=== PATIENT | male | born 1990 | race Asian ===

== ENCOUNTER 2016-09-05 19:54 | Emergency (ER) | payer OTHER ==
[2016-09-05 20:10] VITALS: TEMP 98.1; O2SAT 97
--- NOTE | 2016-09-05 20:14 | EDPHY ---
H & P Stated Complaint: BLACK STOOL TODAY, HAD UPPER GI LAST WEEK= WNL, DIZZY YEST Time Seen by Provider: 09/05/16 20:13 - Personal History Current Tetanus/Diphtheria Vaccine: Unsure - Medical/Surgical History Hx Asthma: No Hx Chronic Respiratory Disease: No Hx Diabetes: No Hx Cardiac Disease: No Hx Renal Disease: No Hx Cirrhosis: No Hx Alcoholism: No Hx HIV/AIDS: No Hx Splenectomy or Spleen Trauma: No Other PMH: GI BLEED - Social History Smoking Status: Never smoked Constitutional: Initial Vital Signs Temperature (C) 36.7 C 09/05/16 20:06 Heart Rate 71 09/05/16 20:06 Respiratory Rate 18 09/05/16 20:06 Blood Pressure 154/64 H 09/05/16 20:06 O2 Sat (%) 97 09/05/16 20:06 O2 Delivery Mode Room Air Allergies/Adverse Reactions: No Known Allergies Allergy (Unverified 09/05/16 20:05) Home Medications: Medication Instructions Recorded Amoxicillin 09/05/16 Biaxin 09/05/16 Protonix 09/05/16 Medical Decision Making ED Course/Re-evaluation: CHIEF COMPLAINT: Upper GI bleed HISTORY OF PRESENT ILLNESS: The patient is a 26 y/o male arriving with his family member complaining of loose black stools onset this morning. He states, "I think my stomach is bleeding because my stools are black." He's experienced the same symptoms recently and had an endoscopy on 08/28/16, 8 days ago, that was normal. He was also started on Protonix, Biaxin, and amoxicillin. The black stools resolved until today. He reports he is compliant with his medications. He denies syncope, lightheadedness, abdominal pain, or other complaints. REVIEW OF SYSTEMS: A 10 point review of systems was performed and is negative with the exception of the elements mentioned in the history of present illness. PHYSICAL EXAM: HR, BP, O2 Sat, RR. Temp noted General Appearance: Alert, well hydrated, appropriate, and non-toxic appearing. Head: Atraumatic without scalp tenderness or obvious injury Eyes: Pupils equal, round, reactive to light and accommodation, EOMI, no trauma , no injection. Ears: Clear bilaterally, no perforation, normal landmarks Nose: Atraumatic, no rhinorrhea, clear. Throat: There is no erythema or exudates, no lesions, normal tonsils, mucus membranes moist. Neck: Supple, 2+ carotid upstroke, nontender, no lymphadenopathy. Respiratory: No retractions, no distress, no wheezes, and no accessory muscle use. Lungs are clear to auscultation bilaterally. Cardiovascular: Regular rate and rhythm, no murmurs, rubs, or gallops. Bilateral carotid, radial, dorsalis pedis, and posterior tibial pulses intact. Good capillary refill all extremities. Gastrointestinal: Abdomen is soft, nontender, non-distended, no masses, no rebound, no guarding, no peritoneal signs. Musculoskeletal: Normal active ROM of all extremities, atraumatic. Neurological: Alert, appropriate, and interactive. The patient has normal DTRs and non-focal cranial nerves, motor, sensory, and cerebellar exam. Skin: No rashes, good turgor, no nodules on palpation. Past medical history: Upper GI bleed of undetermined source, Helicobacter positive Past surgical history: Endoscopy 08/28/16 performed in [place] Family history: Noncontributory Social history: Family member at bedside DIFFERENTIAL DIAGNOSIS: The differential diagnosis for the patient's upper GI bleeding included but was not limited to ulcer disease, gastritis, Sara- Pittman tear, and esophageal varices. MEDICAL DECISION MAKING: This is a normally healthy 26 y/o male presenting with black stools for the second time this month. He had an endoscopy on 08/28/16 that was normal and was started on medications including treatment for Helicobacter. He denies associated symptoms. He is well-appearing on exam. Plan for ISTAT to check Hct and then GI consult 2051: Hct is 39. Consulted with Dr. Willis GI. He is comfortable with my plan to discharge patient home and follow up with his office as an outpatient on Thursday. Discussed this plan with the patient and he agrees. Strict return precautions given. Departure - Departure Disposition: Home, Routine, Self-Care Clinical Impression: Black stools Condition: Good Instructions: Gastrointestinal Bleeding (ED) Additional Instructions: 1. Continue taking your medications as prescribed. 2. Follow up with Dr. Willis, GI doctor, on Thursday. 3. Return to the ED for fainting, lightheadedness, abdominal pain, or other worsening of condition. Referrals: NONE *PRIMARY CARE P,. [Primary Care Provider] - As per Instructions Kevyn Willis MD [Medical Doctor] - As per Instructions Report Scribed for: Edy Villalta Report Scribed by: Christina العلي Date of Report: 09/05/16 Time of Report: 20:14
[2016-09-05 21:06] VITALS: BP 121/78; PULSE 68; RESP 16
== END 2016-09-05 21:06 | disposition home or self-care (01) ==
DX: R19.5 Other fecal abnormalities (principal)
CPT/HCPCS: 82947-QW

== ENCOUNTER 2016-09-08 16:51 | Inpatient (IN) | payer OTHER ==
[2016-09-08] MEDS ORDERED: NS 1,000 ML IV ONE ×3 (17:05→21:18)
[2016-09-08] MEDS ORDERED: PANTOPRAZOLE SODIUM 40 MG VIAL IVP ONE (17:10)
--- NOTE | 2016-09-08 17:10 | EDPHY ---
H & P Stated Complaint: RETURNS FOR CONTINUED BLACK STOOLS SEEN HERE THURSDAY Source: Patient Exam Limitations: No limitations - Personal History Current Tetanus Diphtheria and Acellular Pertussis (TDAP): Unsure - Medical/Surgical History Hx Asthma: No Hx Chronic Respiratory Disease: No Hx Diabetes: No Hx Cardiac Disease: No Hx Renal Disease: No Hx Cirrhosis: No Hx Alcoholism: No Hx HIV/AIDS: No Hx Splenectomy or Spleen Trauma: No Other PMH: GI BLEED - Social History Smoking Status: Never smoked HPI/ROS: CHIEF COMPLAINT: Abdominal pain, dark tarry stools HISTORY OF PRESENT ILLNESS: patient has nearly 1 week of epigastric abdominal pain with doctor stools. He had this previously at his place of residence, where he had a reportedly normal EGD scan within the past few weeks. He was seen here recently with laboratory studies and discharged home with instructions to follow up with the GI specialist. He has made appointment on Thursday with Dr. Willis. since time of discharge from this facility, he did have 1-2 days of improvement but his dark stools returned early this morning. He has also been lightheaded and dizzy. No syncope. No chest pain. No bright red blood in the stool. No vomiting but he is nauseated. No fevers or chills. No use of anticoagulants. No other associated complaints or modifying factors. REVIEW OF SYSTEMS: Ten systems reviewed and are negative unless otherwise noted in the HPI EXAMINATION: General Appearance: Alert, no distress Head: normocephalic, atraumatic Eyes: Pupils equal and round, no conjunctival pallor or injection ENT, Mouth: Mucous membranes moist. No erythema, edema, petechiae Neck: Normal inspection, supple, non-tender Respiratory: Lungs are clear to auscultation. No wheezing, rhonchi or crackles. Cardiovascular: Regular rate and rhythm . No murmur. Pulses intact distally. Gastrointestinal: Abdomen is soft . Mild tenderness in the epigastrium. No tympany. No rigidity. Nonacute abdomen. Rectal: normal rectal tone. No stool in the rectal vault. Prostate was normal in caliber and palpation. Neurological: A&O, nonfocal, normal gait Skin: Warm and dry, no rash . No petechiae or purpura. Extremities: Nontender, no pedal edema Psychiatric: Mood and affect normal DIFFERENTIAL DIAGNOSES: Including but not limited to Upper GI bleed, duodenitis, gastritis, peptic ulcer, enteritis, colitis, diverticulitis MDM: 5:15 p.m. ongoing abdominal pain with dark tarry stools. He has been lightheaded and dizzy without syncope. No chest pain. Nausea but no vomiting. Has an appointment with his GI specialist on Thursday for an upper GI study. 6:15 p.m. notified by laboratory personnel that the Hemoccult that I performed is positive. 7:15 p.m. notified by radiologist that the CT scan reveals an incidental note of a left renal stone without hydronephrosis or hydroureter. There is no acute finding otherwise. Specifically no abnormality of the duodenum, no no evidence of perforation or pneumoperitoneum. I discussed this with the patient and also with the on-call organ fixer Dr. Moreno. María was made aware the patient has an area over the past 2 weeks. He recommends the patient be admitted and will plan for a EGD in the morning. I then discussed the case with the hospitalist Dr. Dickey, and she will admit the patient to the hospital for further care. The patient is to be NPO after midnight. We have ordered and started Protonix drip ED Precautions: Worsening pain. Fever. Bloody stools. Bloody emesis. Constipation or diarrhea. SUPERVISION: Patient was evaluated in conjunction with the supervising physician. Please see their note for details. (Vini Berry) Constitutional: Initial Vital Signs Temperature (C) 36.8 C 09/08/16 16:56 Heart Rate 81 09/08/16 16:56 Respiratory Rate 16 09/08/16 16:56 Blood Pressure 124/77 H 09/08/16 16:56 O2 Sat (%) 97 09/08/16 16:56 O2 Delivery Mode Room Air Allergies/Adverse Reactions: No Known Allergies Allergy (Verified 09/08/16 19:51) Home Medications: Medication Instructions Recorded Amoxicillin 500 mg PO BID 09/05/16 Clarithromycin [Biaxin (*)] 500 mg PO BID 09/05/16 Pantoprazole Sodium [Protonix 40mg 40 mg PO BID 09/05/16 (*)] Departure - Departure Disposition: [facility] Acute Clinical Impression: Upper GI bleed, Melena Abdominal pain Qualifiers: Abdominal location: epigastric Qualified Code(s): R10.13 - Epigastric pain Condition: Good
[2016-09-08 17:43] LABS: % IMMATURE GRANULYOCYTES 0.2 % (0.0-1.1); ABSOLUTE IMMATURE GRANULOCYTES 0.02 10^3/uL (0.00-0.10); ADD DIFF? NO; ADD MORPH? NO; ADD SCAN? NO; ATYPICAL LYMPHOCYTE FLAG 20 (0-99); FRAGMENT RBC FLAG 0 (0-99); HEMATOCRIT 33.2 % (40.0-51.0); HEMOGLOBIN 11.3 g/dL (13.7-17.5); LEFT SHIFT FLG 0 (0-99); LIPEMIA HEMOLYSIS FLAG 90 (0-99); MEAN CELL HEMOGLOBIN 30.1 pg (27.9-34.1); MEAN CELL VOLUME 88.5 fL (81.5-99.8); MEAN PLATELET VOLUME 9.8 fL (8.7-11.7); PLATELET CLUMPS FLAG 30 (0-99); PLATELET COUNT 286 10^3/uL (150-400); RED BLOOD CELL COUNT 3.75 10^6/uL (4.40-6.38); RED CELL DISTRIBUTION WIDTH 12.8 % (11.5-15.2)
[2016-09-08 18:06] LABS: INR 1.15 (0.83-1.16); PROTIME(PATIENT) 14.7 SEC (12.0-15.0)
[2016-09-08 18:07] LABS: ALANINE AMINOTRANSFERASE 37 IU/L (21-72); ALKALINE PHOSPHATASE 64 IU/L (38-126); ANION GAP 10 mEq/L (8-16); ASPARTATE AMINOTRANSFERASE 21 IU/L (17-59); BILIRUBIN,TOTAL 0.8 mg/dL (0.1-1.4); BILIRUBIN-CONJUGATED 0.1 mg/dL (0.0-0.5); BILIRUBIN-UNCONJUGATED 0.7 mg/dL (0.0-1.1); CALCIUM 8.7 mg/dL (8.5-10.4); CARBON DIOXIDE 26 mEq/l (22-31); CHLORIDE 104 mEq/L (97-110); CREATININE 0.9 mg/dL (0.7-1.3); GLOMERULAR FILTRATION RATE > 60; GLUCOSE 89 mg/dL (70-100); POTASSIUM 4.3 mEq/L (3.5-5.2); SODIUM 140 mEq/L (134-144); TOTAL PROTEIN 6.6 g/dL (6.3-8.2)
[2016-09-08] MEDS ORDERED: IOPAMIDOL (ISOVUE-300) 100 ML BTL IV ONE (18:09)
[2016-09-08 18:18] LABS: APTT 30.2 SEC (23.0-38.0)
[2016-09-08] MEDS ORDERED: MAALOX/LIDO/HYOSC GI COCKTAIL 55 ML BOTTLE PO ONE (18:20)
--- NOTE | 2016-09-08 18:57 | CT ---
CT Abdomen and Pelvis With Contrast History: Epigastric abdominal pain, dark stools. Comparison: None available. Technique: Axial contrast-enhanced images were obtained through the abdomen and pelvis following the uneventful administration of 90 mL Isovue-300 intravenous contrast. Creatinine is 0.9. Dose reduction techniques were utilized. Findings: Abdomen: The lung bases are clear. Heart size is normal. The liver, gallbladder, spleen, pancreas, adrenals, and right kidney are normal. There is a nonobstru cting 3 mm stone in the inferior left kidney. The colon and small bowel are normal caliber without evidence of obstruction. The appendix is normal. There is no free fluid or air. The aorta is normal caliber . The IVC, hepatic, portal, splenic, and superior mesenteric veins are pa tent. An accessory right hepatic vein is noted. No pathologically enlarged lymph nodes are identified . Mild degenerative change is present at L4-L5 and L5-S1 with annular bulges, causing [id number] spinal canal narrowing. Pelvis: The bladder is normal. There is no free fluid. No aggressive osseous lesions are identified. Impression: 1. No acute findings. 2. Nonobstructing left nephrolithiasis. 3. Mild degenerative change in the lumbar spine with mild to moderate spinal canal narrowing from L4 through S1. Findings discussed with Vini Berry PAC 09/08/2016 at 18:51.
[2016-09-08 19:01] LABS: COLOR PALE YELLOW; LEUKOCYTE ESTERASE,URINE NEGATIVE (NEGATIVE); NITRITE,URINE NEGATIVE (NEGATIVE)
[2016-09-08] MEDS ORDERED: PANTOPRAZOLE SODIUM 80 MG in NS 100 ML IV SCH (19:30)
[2016-09-08] MEDS ORDERED: PANTOPRAZOLE SODIUM 80 MG in NS 100 ML IV ONE (20:00)
[2016-09-08] MEDS ORDERED: ACETAMINOPHEN 325 MG TAB PO PRN (21:06)
[2016-09-08] MEDS ORDERED: ONDANSETRON 4 MG/2 ML VIAL IVP PRN (21:06)
[2016-09-08] MEDS ORDERED: ONDANSETRON DISINTEGRATING 4 MG TAB PO PRN (21:06)
[2016-09-08] MEDS ORDERED: PANTOPRAZOLE SODIUM 40 MG in NS 100 ML IV SCH (21:30)
[2016-09-08] MEDS ORDERED: NS 1,000 ML IV SCH (21:30)
[2016-09-08] MEDS ORDERED: ONDANSETRON DISINTEGRATING 4 MG TAB PO ONE (21:31)
[2016-09-08] MEDS: CLARITHROMYCIN 500 MG TAB PO SCH (21:33)
--- NOTE | 2016-09-08 21:56 | GHP ---
[f rep st] HISTORY AND PHYSICAL DATE OF ADMISSION: 09/08/2016 CHIEF COMPLAINT: Acute blood loss anemia, melena. HISTORY OF PRESENT ILLNESS: The patient is a pleasant 26-year-old male with no significant past medical history, presenting with melena. The patient was visiting his girlfriend in [place] early in August and began having dark stools. At that time, he was evaluated and underwent an EGD that showed a normal esophagus and chronic gastritis. He was H. pylori positive. He has been taking triple therapy since that time. After discharge the patient's stools were normal for approximately 5-6 days but then he began having the dark black stools for the past 2 weeks. They have been watery and loose for the past 2 days. He said there is a little bit of bright red blood but mainly dark. He denies any abdominal pain but describes it more as a discomfort. Denies nausea or vomiting. No fevers, chills, or sweats. No joint pain. No myalgias. He has had increased fatigue. He states that he is normally very active. He has dizziness if he gets up too quickly or is walking up the stairs. He has not lost consciousness. He states that he has had an episode of lower GI bleeding 5 years ago and has had no problems since then. He has had a normal appetite over the last couple of weeks but has been eating softer foods. REVIEW OF SYSTEMS: I completed a 10-point review of systems, negative except as noted in HPI. PAST MEDICAL HISTORY: Lower GI bleed 5 years ago. PAST SURGICAL HISTORY: None. SOCIAL HISTORY: He is a Ph student at in physics. He just moved here from [place] 4 months ago. Denies illicit's, tobacco, or alcohol. MEDICATIONS: 1. Protonix 40 mg daily. 2. Clarithromycin 500 mg daily. 3. Amoxicillin 500 mg daily. 4. Denies any NSAIDs. FAMILY HISTORY: No familial history of stomach cancers. ALLERGIES: No known drug allergies. PHYSICAL EXAMINATION: VITAL SIGNS: Temperature 37.2, blood pressure 117/37, heart rate 70s, respiration 14, 98% on room air. GENERAL: Sitting up in bed, no acute distress. Mildly pale. HEENT: PERRLA. EOMI. Normal conjunctiva. No conjunctival pallor. CV: Regular rate and rhythm. No murmurs, gallops, or rubs. LUNGS: Clear to auscultation bilaterally. ABDOMEN: Soft, nontender, nondistended. Positive bowel sounds throughout. : No suprapubic tenderness. MUSCULOSKELETAL: 5/5 upper and lower extremity strength. NEURO: 2 through 12 intact. PSYCH: Alert and oriented x3. LABORATORY DATA: WBC 8.3, hemoglobin 11, hematocrit 33, platelets 286. Coags are within normal. Sodium 140, potassium 4.3, chloride 104, carbon dioxide 26, BUN 29, creatinine 0.9, glucose 89. LFTs are within normal. Lipase was negative. Urine is negative. Fecal occult blood positive. Abdominal CT: No acute findings. There is nonobstructing left nephrolithiasis. Mild degenerative change in lumbar spine with mild to moderate spinal canal narrowing at L4 through S1. ASSESSMENT AND PLAN: 1. Symptomatic acute blood loss anemia/melena: This is likely secondary to an ulcer secondary to Helicobacter pylori. Patient tested positive in early August. He has been taking triple therapy. I will continue these. I will continue amoxicillin and clarithromycin and place on a PPI drip here. GI has been consulted and will see patient in the morning. I will check serial H and H. He is currently hemodynamically stable. 2. Chronic gastritis: per EGD on August 28 at an outside hospital in [place]. Continue PPI. 3. Dizziness: due to acute blood loss anemia. We will hydrate. Blood pressure has been stable here. 4. Diet: N.p.o. 5. DVT prophylaxis. Low risk and no anticoagulation in the setting of gastrointestinal bleed. Patient warrants observation admission, given acute GI bleed requiring serial H and H, IV Protonix, and Gastroenterology consultation. /[id number]/MODL MTDD
[2016-09-09 06:57] LABS: HEMATOCRIT 28.4 % (40.0-51.0); HEMOGLOBIN 9.4 g/dL (13.7-17.5)
[2016-09-09 06:58] LABS: ANION GAP 6 mEq/L (8-16); CALCIUM 8.4 mg/dL (8.5-10.4); CARBON DIOXIDE 25 mEq/l (22-31); CHLORIDE 106 mEq/L (97-110); GLOMERULAR FILTRATION RATE > 60; GLUCOSE 75 mg/dL (70-100); POTASSIUM 4.5 mEq/L (3.5-5.2); SODIUM 137 mEq/L (134-144)
[2016-09-09 09:07] LABS: HEMATOCRIT 27.9 % (40.0-51.0); HEMOGLOBIN 9.4 g/dL (13.7-17.5); MEAN CELL HEMOGLOBIN 30.6 pg (27.9-34.1); MEAN CELL HEMOGLOBIN CONCENTR. 33.7 g/dL (32.4-36.7); MEAN CELL VOLUME 90.9 fL (81.5-99.8); RED BLOOD CELL COUNT 3.07 10^6/uL (4.40-6.38); RED CELL DISTRIBUTION WIDTH 13.1 % (11.5-15.2)
--- NOTE | 2016-09-09 09:45 | HOSPPROG ---
Hospitalist Progress Note Assessment/Plan: # melena - recent EGD in [place] (d/t melena) - ?chronic gastritis; started on H. pylori tx - has hx of arterial GI bleed 5 years ago; at 14yo had GI bleed with no identified source on EGD - plan EGD today - discussed with Dr Moreno - jax H/H - cont ppi gtt # ABLA - no transfusion now, but may need; also consider IV Fe ## new pt to me CT reviewed Subjective: no abd pain; no melena overnight Objective: Vital Signs Temp Pulse Resp BP Pulse Ox 36.7 C 64 16 107/65 98 09/09/16 08:43 09/09/16 08:43 09/09/16 08:43 09/09/16 08:43 09/09/16 08:43 Laboratory Results 09/09/16 04:30 09/09/16 06:00 09/08/16 09/09/16 09/10/16 05:59 05:59 05:59 Intake Total 3100 Balance 3100 PT 14.7 SEC (12.0-15.0) 09/08/16 17:28 INR 1.15 (0.83-1.16) 09/08/16 17:28 - Physical Exam Constitutional: no apparent distress, appears nourished Cardiovascular: regular rate and rhythym, no murmur, rub, or gallop Respiratory: no respiratory distress, no rales or rhonchi, clear to auscultation Gastrointestinal: normoactive bowel sounds, soft, non-tender abdomen, no palpable masses ICD10 Worksheet Patient Problems: Problems Problem Status Onset Upper GI bleed Acute Melena Acute Abdominal pain Acute
[2016-09-09] MEDS: CLARITHROMYCIN 500 MG TAB PO SCH ×2 (10:18→19:40)
[2016-09-09] MEDS ORDERED: PANTOPRAZOLE SODIUM 40 MG in NS 100 ML IV ONE (10:50)
[2016-09-09] MEDS ORDERED: PANTOPRAZOLE SODIUM 80 MG in NS 100 ML IV SCH (11:00)
--- NOTE | 2016-09-09 11:04 | GCON ---
[f rep st] CONSULTATION DATE OF CONSULTATION: 09/09/2016 REFERRING PHYSICIAN: Shannon Dickey MD REASON FOR CONSULTATION: Dr. Dickey, thank you very kindly for asking me to evaluate this patient i n consultation for chief complaint of melena. 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 He was diz zy, lightheaded and was having melena. Endoscopy was performed there, and while I do not have the f ormal results, it sounds like he was found to have gastritis and H pylori. He was treated with amox icillin, clarithromycin and omeprazole. He has returned home to [facility] where he is attending [employer], and has had persistent problems of weakness and dark tarry bowel movements. He denies any NSA ID or alcohol use. Interestingly, the patient has had a remote history of an upper GI bleed in [facility] 5 years ago when he developed hematemesis and had what he describes as a clipping procedure done f or a bleeding artery. I do not have more details of this. Since that initial event 5 years ago and the bleeding in [place] when he was traveling to visit his girlfriend, he was well in between thes e events. His initial hematocrit in the ER was 33.2 and has fallen to 28.4 this morning. He has no t had any melena since admission. His INR is normal at 1.15 and his other hemodynamic parameters vinson ve been stable. His platelets are 232. I am asked to assist with further evaluation and management of his melena and anemia. PAST MEDICAL HISTORY: 1. Significant for what sounds like a gastric ulcer with arterial bleeding requiring Endoclip thera py in [place]. 2. H pylori related gastritis, recently diagnosed in August in [place]. 3. No other past medical or surgical problems. ALLERGIES: None. MEDICATIONS: Clarithromycin, amoxicillin and omeprazole twice daily. SOCIAL HISTORY: No alcohol, no tobacco. 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 He attends University in [facility]. He has a significant other w alix is in school in [place]. FAMILY HISTORY: Negative for peptic ulcer disease or bleeding disorders. REVIEW OF SYSTEMS: CONSTITUTIONAL: He has been weak and dizzy. He has felt lightheaded. HEENT: No headache, no visual disturbances. No sore throat. No epistaxis. No difficulty swallowing. PUL MONARY: He has been short of breath with exertion. CARDIOVASCULAR: No chest pains, palpitations o r syncope. GI: He describes multiple frequent dark bowel movements in a day. There is no abdomina l pain, interestingly. No vomiting, no hematemesis, no nausea, no dysphagia, and no heartburn. MUS CULOSKELETAL: No joint pain or swelling. DERMATOLOGIC: No rash, pruritus or jaundice. HEMATOLOGI C: No epistaxis or bruising. Endocrine: No heat or cold intolerance. No polyuria, polydipsia. G ENITOURINARY: No dysuria, hematuria. PSYCHIATRIC: No depression, anxiety, or insomnia. NEUROLOGI C: No paresthesias, focal motor weakness, or seizure. PHYSICAL EXAM: VITAL SIGNS: Blood pressure is 107/65, with a pulse of 64, oxygenation 98% on room air, temperature is 36.7. GENERAL: Healthy-appearing male, in no acute distress. HEENT: No rmocephalic, atraumatic. Oropharynx clear. No epistaxis. Sclerae anicteric. NECK: Supple. No t hyromegaly. PULMONARY: Clear to auscultation bilaterally. CARDIOVASCULAR: Regular rate and rhyth m without murmur, rub, or gallop. GI: Abdomen is scaphoid, nondistended. No organomegaly. No ten derness, rebound, guarding or ascites. MUSCULOSKELETAL: Normal gait and station. No cyanosis, clu bbing. Normal joints without deformity or swelling. NEUROLOGIC: Alert to person, place, and time. Cranial nerves 2-12 are normal. Motor is nonfocal. Gait is nonataxic. DERMATOLOGIC: No jaundic e or rash. LYMPHATIC: No lymphadenopathy. DATABASE: White blood count of 6.6, hematocrit 27.9, platelets 232. INR is 1.15. Sodium 137, pota ssium 4.5, chloride 106, bicarbonate 25, BUN 20, creatinine 1.0, anion gap 6. BUN yesterday on admi ssion was 29. Total bilirubin 0.8, AST is 21, ALT is 37, alkaline phosphatase 64, lipase is 62. IMPRESSION: 1. Anemia secondary to acute on chronic blood loss. 2. Recent gastritis with H pylori positivity on treatment. 3. Melena. 4. Weakness and fatigue. RECOMMENDATIONS: 1. N.p.o. 2. Serial hematocrit q.8 hours. 3. Continuous Protonix IV infusion. 4. Continue antibiotic therapy for H pylori. 5. Repeat upper endoscopy to interrogate for a source of bleeding that might have been missed at [facility] endoscopy August 28 in [place]. 6. Request records from the [place] endoscopy for review. 7. Depending on the findings of the endoscopy, will potentially need further endoscopic evaluation. This may include a colonoscopy, although I think given the description of his history and recent b leeding this would be unlikely for a colonic source of bleeding. Nonetheless, if his endoscopy is r eally unremarkable, then colonoscopy should be performed. 8. Consideration for small bowel bleeding sources such as arterial venous malformations or Meckel's diverticula can also be considered. If the upper endoscopy is negative, and colonoscopy is perform ed and also negative, then either a capsule endoscopy or nuclear medicine scan could be arranged to further evaluate this. 9. If his hematocrit falls much further, he may benefit from a transfusion. My threshold would be a hematocrit of 25 as he does have a symptomatic anemia and still an undisclosed source of bleeding. 10. Further recommendations to follow. /[id number]/MODL
[2016-09-09 11:56] LABS: HEMATOCRIT 30.1 % (40.0-51.0); HEMOGLOBIN 10.2 g/dL (13.7-17.5)
[2016-09-09] MEDS ORDERED: MIDAZOLAM 2 MG/2 ML VIAL ONE (12:52)
[2016-09-09] MEDS ORDERED: PROPOFOL 200 MG/20 ML VIAL ONE ×3 (12:52→13:04)
--- NOTE | 2016-09-09 13:49 | GPN ---
[f rep st] PROCEDURE NOTE NAME OF PROCEDURE: Esophagogastroduodenoscopy. INDICATION: Melena and anemia secondary to blood loss. CONSENT: Procedure consent was obtained from the patient after the risks and benefits of endoscopy were discussed in detail. All questions were answered and informed consent was obtained. ENDOSCOPY STAFF: Caleb. ANESTHESIA: Provided by Dr. Kelly. Monitored anesthesia care with IV propofol. PROCEDURE DESCRIPTION: The patient was placed into the left lateral decubitus position with the hea d of the bed at 30 degrees. All monitoring parameters were ensued per anesthesiology protocol. IV propofol was administered by IV until it was appropriate. We sedated and then the endoscope utilize d to intubate the esophagus under direct visualization. FINDINGS: The posterior hypopharynx was normal. There was no blood. The esophagus was intubated u nder direct visualization easily and advanced into the GE junction at 38 cm which was normal in appe arance with a regular-appearing Z-line. There was no evidence of esophagitis or esophageal varices. The stomach was entered and revealed a linear, somewhat ulcer along the lesser curve of the gastri c body with surrounding erythema, congestion, and granularity. There was no stigmata of recent blee ding. Retroflexed view of the gastric cardia was normal. The remaining body of the stomach was unr emarkable. There were some small erosive changes on the incisura. The antrum was clean without abn ormality as was the pylorus and pyloric channel. The duodenum was normal through the second portion . Bile was seen throughout the stomach and duodenum without any evidence of active bleeding. IMPRESSION: 1. Normal esophagus. 2. Superficial gastric ulcer along the lesser curve, without stigmata of bleeding, clean based. 3. Erosive gastropathy in the incisura without bleeding. 4. Normal duodenum to the second portion. RECOMMENDATION: 1. Diet as tolerated. 2. I would recommend considering IV iron infusion to help him with the recent bleed and recovery of his anemia. 3. He has been recently tested for H pylori and was reportedly positive and is on treatment for thi s and I would continue his full course of therapy for H pylori. 4. Follow up in GI as an outpatient in a few weeks. 5. If the patient has persistent melena despite the endoscopic findings today, then we will recomme nd a colonoscopy, and if negative, a capsule endoscopy. I do believe the findings today of erosive gastropathy and a superficial gastric ulcer in the setting of H pylori are enough to have been the c ause of bleeding. He has now been on treatment for at least 10 days from his previous endoscopy in [place]. 6. Return to [facility] for possible discharge same day. /[id number]/MODL
--- NOTE | 2016-09-09 15:43 | HOSPPROG ---
Hospitalist Progress Note Assessment/Plan: # melena - recent EGD in [place] (d/t melena) - ?chronic gastritis; started on H. pylori tx - has hx of arterial GI bleed 5 years ago; at 14yo had GI bleed with no identified source on EGD - EGD today - discussed with Dr Moreno - trend H/H - ppi gtt/I dc'd this and started him on oral PPI BID # ABLA - no transfusion now, IV Fe ordered. #plan: reviewed his care with Dr Allen who saw him earlier today. Spoke with Dr Moreno who noted the patient had a gastric ulcer/ cont PPI bid/ and cont h pylori treatment for a total of 14 days. I have ordered iron IV for him. He is concerned about chlamydia (his girlfriend has this)/ will order test. Talked to him about being discharged this evening/ he feels too dizzy and lightheaded. Get repeat labs in a.m./ having ongoing melena stools per RN. Subjective: Trevor says he is feeling too dizzy to be discharged. Objective: Vital Signs Temp Pulse Resp BP Pulse Ox 36.9 C 74 18 107/57 L 98 09/09/16 13:36 09/09/16 13:36 09/09/16 13:36 09/09/16 15:02 09/09/16 15:02 Laboratory Results 09/09/16 11:45 09/09/16 06:00 09/08/16 09/09/16 09/10/16 05:59 05:59 05:59 Intake Total 3600 Balance 3600 PT 14.7 SEC (12.0-15.0) 09/08/16 17:28 INR 1.15 (0.83-1.16) 09/08/16 17:28 - Physical Exam Constitutional: no apparent distress, appears nourished Eyes: PERRL Ears, Nose, Mouth, Throat: hearing normal Respiratory: no respiratory distress Skin: warm, No normal color (pale) Musculoskeletal: no muscle tenderness Neurologic: AAOx3 Psychiatric: interacting appropriately ICD10 Worksheet Patient Problems: Problems Problem Status Onset Abdominal pain Acute Melena Acute Upper GI bleed Acute
[2016-09-09] MEDS ORDERED: SODIUM FERRIC GLUCONAT/SUCROSE 125 MG in NS 100 ML IV ONE (15:46)
[2016-09-09] MEDS: PANTOPRAZOLE SODIUM 40 MG TAB PO SCH (19:40)
[2016-09-10 05:44] LABS: % IMMATURE GRANULYOCYTES 0.3 % (0.0-1.1); ABSOLUTE IMMATURE GRANULOCYTES 0.03 10^3/uL (0.00-0.10); ADD DIFF? NO; ADD MORPH? NO; ADD SCAN? NO; ATYPICAL LYMPHOCYTE FLAG 0 (0-99); FRAGMENT RBC FLAG 0 (0-99); HEMATOCRIT 27.3 % (40.0-51.0); HEMOGLOBIN 9.1 g/dL (13.7-17.5); LEFT SHIFT FLG 0 (0-99); LIPEMIA HEMOLYSIS FLAG 80 (0-99); MEAN CELL HEMOGLOBIN 30.1 pg (27.9-34.1); MEAN CELL HEMOGLOBIN CONCENTR. 33.3 g/dL (32.4-36.7); MEAN CELL VOLUME 90.4 fL (81.5-99.8); MEAN PLATELET VOLUME 10.5 fL (8.7-11.7); PLATELET CLUMPS FLAG 0 (0-99); PLATELET COUNT 241 10^3/uL (150-400); RED BLOOD CELL COUNT 3.02 10^6/uL (4.40-6.38)
[2016-09-10] MEDS: SODIUM FERRIC GLUCONAT/SUCROSE 125 MG in NS 100 ML IV SCH (08:03)
[2016-09-10] MEDS: PANTOPRAZOLE SODIUM 40 MG TAB PO SCH ×2 (08:04→20:08)
[2016-09-10] MEDS: CLARITHROMYCIN 500 MG TAB PO SCH ×2 (08:04→20:07)
[2016-09-10 12:26] LABS: CHLAMYDIA AMPLIFICATION GENPRB NEGATIVE (NEGATIVE)
--- NOTE | 2016-09-10 14:28 | HOSPPROG ---
Hospitalist Progress Note Assessment/Plan: 26-year-old male presents emergency room complaints of bloody stool. This is my 1st encounter with the patient, chart reviewed. Patient discussed with Dr. Moreno. # melena - recent EGD in [place] (d/t melena) - ?chronic gastritis; started on H. pylori tx - has hx of arterial GI bleed 5 years ago; at 14yo had GI bleed with no identified source on EGD - EGD Done 09/09/2016 see notes- discussed with Dr Moreno - H/H decreased today - ppi - continues to complain of dark stools - plan for colonoscopy in a.m. - follow H&H # ABLA - no transfusion now #plan: Spoke with Dr Moreno who noted the patient had a gastric ulcer/ cont PPI bid/ and cont h pylori treatment for a total of 14 days. plan for colonoscopy in the a.m. He is concerned about chlamydia (his girlfriend has this)/ test pending. Subjective: still having dark stools. Still concern for bleeding. Anxious about situation. Objective: Vital Signs Temp Pulse Resp BP Pulse Ox 36.6 C 71 16 112/68 96 09/10/16 08:00 09/10/16 08:00 09/10/16 08:00 09/10/16 08:00 09/10/16 08:00 Laboratory Results 09/10/16 04:24 09/09/16 06:00 09/09/16 09/10/16 09/11/16 05:59 05:59 05:59 Intake Total 3600 Balance 3600 PT 14.7 SEC (12.0-15.0) 09/08/16 17:28 INR 1.15 (0.83-1.16) 09/08/16 17:28 - Physical Exam Constitutional: no apparent distress, appears nourished, not in pain Eyes: PERRL, anicteric sclera, EOMI Ears, Nose, Mouth, Throat: moist mucous membranes, hearing normal, ears appear normal Cardiovascular: regular rate and rhythym, No JVD, No edema Respiratory: no respiratory distress, no rales or rhonchi, reduced air movement Gastrointestinal: No tenderness, No ascites, No guarding Skin: warm, normal color, No erythema Musculoskeletal: normal joint ROM, no joint effusions, generalized weakness Neurologic: AAOx3 Psychiatric: not anxious, not encephalopathic, thought process linear ICD10 Worksheet Patient Problems: Problems Problem Status Onset Abdominal pain Acute Melena Acute Upper GI bleed Acute
[2016-09-10] MEDS ORDERED: GOLYTELY 4000 ML BTL PO ONE (15:23)
[2016-09-10 15:36] LABS: HEMATOCRIT 29.7 % (40.0-51.0); HEMOGLOBIN 9.9 g/dL (13.7-17.5)
--- NOTE | 2016-09-10 15:38 | SOAPPROG ---
SOAP Progress Note Assessment/Plan: Assessment: 1. Anemia secondary to acute blood loss 2. Melena 3. Erosive gastropathy 4. H.pylori gastritis Plan: 1. I am not convinced that his melena and anemia are well explained by the erosive gastropathy alone. 2. Colonoscopy tomorrow AM 3. Golytely this evening 4. Clears until midnight then NPO 5. Monitor H/H. Transfuse if Hct <25 6. The colon cleanse should also help clear old blood products to help with assessment of ongoing bleeding 7. If colonoscopy negative and ongoing bleeding then a tagged RBC scan (and possibly meckel's scan) can be considered. 8. May pursue provocative angiography if entire w/u non-diagnostic for source. 9. Continue IV PPI for now. 09/10/16 15:39 Subjective: CC: Melena Ongoing. 1-2 formed, black BMs daily. Stable Hct but still anemic. No abdominal pain. No hematochezia. No hematemesis. Objective: Vital Signs Temp Pulse Resp BP Pulse Ox 36.6 C 71 16 112/68 96 09/10/16 08:00 09/10/16 08:00 09/10/16 08:00 09/10/16 08:00 09/10/16 08:00 Laboratory Results 09/09/16 06:00 09/09/16 09/10/16 09/11/16 05:59 05:59 05:59 Intake Total 3600 Balance 3600 PT 14.7 SEC (12.0-15.0) 09/08/16 17:28 INR 1.15 (0.83-1.16) 09/08/16 17:28 Physical Exam - Physical Exam General Appearance: WD/WN, no apparent distress EENT: normal ENT inspection Neck: supple Respiratory: lungs clear Cardiac/Chest: regular rate, rhythm, No tachycardia, No systolic murmur Abdomen: normal bowel sounds, non-tender, soft, No organomegaly, No distended, No guarding, No rebound, No ascites, No bruit Skin: warm/dry, pallor, No cyanosis, No diaphoresis, No jaundice Lymphatic: no adenopathy Neuro/Psych: alert, normal mood/affect, oriented x 3 ICD10 Worksheet Patient Problems: Problems Problem Status Onset Abdominal pain Acute Melena Acute Upper GI bleed Acute
[2016-09-10 21:05] LABS: HEMATOCRIT 32.7 % (40.0-51.0); HEMOGLOBIN 11.2 g/dL (13.7-17.5)
[2016-09-11 04:55] LABS: HEMATOCRIT 30.1 % (40.0-51.0); HEMOGLOBIN 9.9 g/dL (13.7-17.5)
[2016-09-11] MEDS: SODIUM FERRIC GLUCONAT/SUCROSE 125 MG in NS 100 ML IV SCH (08:07)
[2016-09-11] MEDS ORDERED: PROPOFOL/EMULSION 500 MG/50 ML BOTTLE IV ONE (09:15)
[2016-09-11] MEDS ORDERED: LIDOCAINE 2% 100 MG/5 ML SYR IVP ONE (09:15)
[2016-09-11 10:04] VITALS: TEMP 97.9
[2016-09-11] MEDS: CLARITHROMYCIN 500 MG TAB PO SCH ×2 (11:37→21:31)
[2016-09-11] MEDS: PANTOPRAZOLE SODIUM 40 MG TAB PO SCH ×2 (11:38→21:31)
--- NOTE | 2016-09-11 13:33 | HOSPPROG ---
Hospitalist Progress Note Assessment/Plan: 26-year-old male presents emergency room complaints of bloody stool. Patient discussed with Dr. Moreno. # melena - recent EGD in [place] (d/t melena) - ?chronic gastritis; started on H. pylori tx - has hx of arterial GI bleed 5 years ago; at 14yo had GI bleed with no identified source on EGD - EGD Done 09/09/2016 see notes - colonoscopy done today no source of bleeding identified reviewed with Dr. Moreno - H/H follow - ppi IV - continues to complain of a bloody stools - meckel study ordered today # ABLA - no transfusion now #plan: Spoke with Dr Moreno/ cont PPI/ and cont h pylori treatment for a total of 14 days. Subjective: Still concerned about bloody stools. Some intermittent dizziness. No other specific complaints. Objective: Vital Signs Temp Pulse Resp BP Pulse Ox 36.6 C 59 L 14 104/54 L 96 09/11/16 10:49 09/11/16 10:49 09/11/16 10:49 09/11/16 10:49 09/11/16 10:49 Laboratory Results 09/11/16 04:20 09/10/16 09/11/16 09/12/16 05:59 05:59 05:59 Intake Total 500 Output Total 0 Balance 500 PT 14.7 SEC (12.0-15.0) 09/08/16 17:28 INR 1.15 (0.83-1.16) 09/08/16 17:28 - Physical Exam Constitutional: no apparent distress, not in pain Eyes: PERRL, anicteric sclera Ears, Nose, Mouth, Throat: moist mucous membranes, hearing normal Cardiovascular: No JVD, No edema Respiratory: no respiratory distress, reduced air movement Gastrointestinal: No tenderness, No ascites Skin: warm, normal color Musculoskeletal: full muscle strength, no joint effusions Neurologic: AAOx3 Psychiatric: not anxious, not encephalopathic ICD10 Worksheet Patient Problems: Problems Problem Status Onset Upper GI bleed Acute Melena Acute Abdominal pain Acute
--- NOTE | 2016-09-11 15:43 | GPN ---
[f rep st] PROCEDURE NOTE DATE OF PROCEDURE: 09/11/2016 PROCEDURE: A colonoscopy, diagnostic. INDICATION: Melena, obscure GI bleeding. CONSENT: Procedure consent was obtained from the patient after the risks and benefits of colonoscop y and anesthesia were discussed in detail. ANESTHESIOLOGIST: Dr. Henderson. NURSING: Missy Chavarria. PROCEDURE COMPLICATIONS: None. ESTIMATED BLOOD LOSS: None. PROCEDURE MONITORING: Continuous per Anesthesiology protocol. ANESTHESIA: Monitored anesthesia care with IV propofol. DESCRIPTION OF PROCEDURE: The patient was placed into the left lateral decubitus position. Monitor s and oxygen were provided. A time-out was performed. Propofol was administered by IV and when com fortable, the procedure begun. A digital rectal exam was performed and was normal. No palpable mas s or lesion. The perianal tissues are normal. The prostate is unremarkable. The Olympus colonosco pe was advanced ultimately into the terminal ilium. About 10 cm of distal ilium were evaluated. Th e cecum was identified by not only the ileocecal valve and appendiceal orifice, but also by intubati on of the terminal ilium. FINDINGS: The distal and terminal ilium and ileocecal valve are completely normal without blood. T here is no source of bleeding identified. The colon is normal in its entirety, including a retroflexed view in the rectum which is unremarkabl e. The colon did not exhibit any blood within its lumen. IMPRESSION: 1. Normal distal and terminal ilium. 2. Normal ileocecal valve. 3. Normal colon, including retroflexed view. 4. No source for bleeding identified. RECOMMENDATIONS: 1. Return patient to [facility] for ongoing care. 2. Diet as tolerated. 3. Will arrange for a small-bowel follow-through and possibly Meckel's scan for further evaluation of his obscure GI bleeding as both his upper endoscopy now and colonoscopy are unremarkable as to so urce of melena and anemia. /[id number]/MODL
[2016-09-12] MEDS: SODIUM FERRIC GLUCONAT/SUCROSE 125 MG in NS 100 ML IV SCH (08:41)
[2016-09-12] MEDS: CLARITHROMYCIN 500 MG TAB PO SCH (08:41)
[2016-09-12] MEDS: PANTOPRAZOLE SODIUM 40 MG TAB PO SCH (08:42)
[2016-09-12 08:55] VITALS: BP 123/75; PULSE 94; RESP 17; O2SAT 94
[2016-09-12 09:33] LABS: HEMATOCRIT 30.6 % (40.0-51.0); HEMOGLOBIN 10.2 g/dL (13.7-17.5)
--- NOTE | 2016-09-12 19:06 | GDS ---
[f rep st] DISCHARGE SUMMARY DISCHARGE DIAGNOSES: 1. Gastrointestinal bleed. 2. Acute blood-loss anemia. CONSULTATIONS: Gastroenterology. STUDIES AND PROCEDURES DONE: 1. CT of the abdomen. 2. EGD. 3. Colonoscopy. 4. [facility] nuclear medicine study. PHYSICAL EXAM: GENERAL: The patient is alert and oriented. VITAL SIGNS: Afebrile, 36.6, pulse is 94, respiratory rate 17, blood pressure is 123/75, he is saturating 94% on room air. I have seen and evaluated the patient on the day of discharge. HOSPITAL COURSE: The patient is a 26-year-old male, who presented to the emergency room, with compl aints of bloody stool. He was evaluated during this hospitalization, received a consultation from Derrek Moreno. An EGD as well as a colonoscopy were performed during this hospital course with no source of a bleeding identified. The patient's hemoglobin and hematocrit remained stable throughout this hospitalization. A nuclear medicine study was ordered with no identifiable source of bleeding noted either. The patient's bloody stools have stopped. He is tolerating a regular diet. His hemoglobin and swati tocrit are stable. He will be discharged home to follow up with Dr. Moreno in the outpatient setting. He will continue his treatment for his recent diagnosis of H pylori as well as continue a proton pump inhibitor in e outpatient setting. There are no pending studies. DISCHARGE MEDICATIONS: I have provided him prescriptions for Protonix, clarithromycin, amoxicillin. Please refer to EMR form for other specific details. FOLLOWUP: Again, followup will be with Dr. Moreno in the outpatient setting, as well as his primary care physician. I spent greater than 35 minutes in the care, coordination, and management of this patient's disposi tion. /[id number]/MODL
== END 2016-09-12 13:27 | disposition home or self-care (01) | DRG 378 ==
LOC: INTOOBSV 19:33 → F3E 09-09 08:32 → OBSVTOIN 09-09 14:35
PROVIDERS: ADMIT Internal Medicine; ATTEND Internal Medicine
PROC: 0DJ08ZZ Inspection of Upper Intestinal Tract, Via Natural or Artificial Opening Endoscopic (ICD-10-PCS; principal; 2016-09-09 12:45)
PROC: 0DJD8ZZ Inspection of Lower Intestinal Tract, Via Natural or Artificial Opening Endoscopic (ICD-10-PCS; 2016-09-11)
DX: K92.1 Melena (principal); D62 Acute posthemorrhagic anemia; K29.50 Unspecified chronic gastritis without bleeding; K25.9 Gastric ulcer, unspecified as acute or chronic, without hemorrhage or perforation
CPT/HCPCS: 96365; G0378; J2001; J2250; J2704; J2916; Q9967

== ENCOUNTER 2017-02-14 10:03 | Emergency (ER) | payer OTHER ==
[2017-02-14 10:13] VITALS: RESP 16
--- NOTE | 2017-02-14 10:24 | EDPHY ---
HPI/HX/ROS/PE/MDM Narrative: CHIEF COMPLAINT: Dark stool. HPI: The patient is a 26-year-old male admitted here two months ago with history of GI bleed of unknown cause, who complains of two days of dark stools. 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 He states he has taken all appropriate medications prescribed by GI. He denies abdominal pain or lightheadedness. No bloody stool. No hematemesis. REVIEW OF SYSTEMS: Aside from elements discussed in the HPI, a comprehensive 10-point review of systems was reviewed and is negative. PMH: GI bleed, H pylori. SOCIAL HISTORY: [employer] student. PHYSICAL EXAM: General: Patient is alert, in no acute distress. ENT: Eyes are normal to inspection. ENT inspection normal. Neck: Normal inspection. Full range of motion. Respiratory: No respiratory distress. Breath sounds normal bilaterally. Cardiovascular: Regular rate and rhythm. Strong peripheral pulses. Abdomen: The abdomen is nontender to palpation. There are no peritoneal signs. There are normal bowel sounds. Back: Normal to inspection. No tenderness to palpation. Skin: Normal color. No rash. Warm and dry. Extremities: Normal appearance. Full range of motion. Neuro: Oriented x3. Normal motor function. Normal sensory function. ED Course: Lab work is unremarkable. There is no evidence of anemia or hemodynamic instability. On previous admission, no source was found. Patient is appropriate for outpatient workup. Plan to have patient followup with his tour bus driver on Thursday. Patient is agreeable with the plan. - Data Points Laboratory Results: Laboratory Results 02/14/17 10:30 02/14/17 10:30 02/14/17 02/14/17 02/14/17 10:30 10:30 10:30 WBC 5.61 10^3/uL 10^3/uL (3.80-9.50) RBC 5.02 10^6/uL 10^6/uL (4.40-6.38) Hgb 15.0 g/dL g/dL (13.7-17.5) Hct 44.3 % % (40.0-51.0) MCV 88.2 fL fL (81.5-99.8) MCH 29.9 pg pg (27.9-34.1) MCHC 33.9 g/dL g/dL (32.4-36.7) RDW 14.0 % % (11.5-15.2) Plt Count 220 10^3/uL 10^3/uL (150-400) MPV 10.1 fL fL (8.7-11.7) Neut % (Auto) 60.8 % % (39.3-74.2) Lymph % (Auto) 29.6 % % (15.0-45.0) [place] % (Auto) 8.6 % % (4.5-13.0) Eos % (Auto) 0.4 % L % (0.6-7.6) Baso % (Auto) 0.4 % % (0.3-1.7) Nucleat RBC Rel Count 0.0 % % (0.0-0.2) Absolute Neuts (auto) 3.42 10^3/uL 10^3/uL (1.70-6.50) Absolute Lymphs (auto) 1.66 10^3/uL 10^3/uL (1.00-3.00) Absolute Monos (auto) 0.48 10^3/uL 10^3/uL (0.30-0.80) Absolute Eos (auto) 0.02 10^3/uL L 10^3/uL (0.03-0.40) Absolute Basos (auto) 0.02 10^3/uL 10^3/uL (0.02-0.10) Absolute Nucleated RBC 0.00 10^3/uL 10^3/uL (0-0.01) Immature Gran % 0.2 % % (0.0-1.1) Immature Gran # 0.01 10^3/uL 10^3/uL (0.00-0.10) PT 14.2 SEC SEC (12.0-15.0) INR 1.11 (0.83-1.16) APTT 29.6 SEC SEC (23.0-38.0) Sodium 140 mEq/L mEq/L (134-144) Potassium 4.5 mEq/L mEq/L (3.5-5.2) Chloride 105 mEq/L mEq/L (97-110) Carbon Dioxide 24 mEq/l mEq/l (22-31) Anion Gap 11 mEq/L mEq/L (8-16) BUN 14 mg/dL mg/dL (7-23) Creatinine 0.9 mg/dL mg/dL (0.7-1.3) Estimated GFR > 60 Glucose 86 mg/dL mg/dL (70-100) Calcium 9.2 mg/dL mg/dL (8.5-10.4) General Time Seen by Provider: 02/14/17 10:18 Initial Vital Signs: Initial Vital Signs Temperature (C) 36.6 C 02/14/17 10:10 Heart Rate 70 02/14/17 10:10 Respiratory Rate 16 02/14/17 10:10 Blood Pressure 125/86 H 02/14/17 10:10 O2 Sat (%) 95 02/14/17 10:10 O2 Delivery Mode Room Air Allergies/Adverse Reactions: No Known Allergies Allergy (Verified 09/08/16 19:51) Home Medications: Medication Instructions Recorded NK [No Known Home Meds] 02/14/17 Departure - Departure Disposition: Home, Routine, Self-Care Clinical Impression: Melena Condition: Good Instructions: Additional Information Additional Instructions: Please followup with your [facility] on Thursday. Referrals: Xu Moreno MD [Medical Doctor] - As per Instructions Report Scribed for: Xu Green Report Scribed by: Joleen Schilling Date of Report: 02/14/17 Time of Report: 10:24 Physician Review and Approval Statement: Portions of this note were transcribed by a certified ophthalmic medical technician. I personally performed the history, physical exam, and medical decision-making; and confirmed the accuracy of the information in the transcribed note.
[2017-02-14 10:38] LABS: % IMMATURE GRANULYOCYTES 0.2 % (0.0-1.1); ABSOLUTE IMMATURE GRANULOCYTES 0.01 10^3/uL (0.00-0.10); ADD DIFF? NO; ADD MORPH? NO; ADD SCAN? NO; ATYPICAL LYMPHOCYTE FLAG 10 (0-99); FRAGMENT RBC FLAG 0 (0-99); HEMATOCRIT 44.3 % (40.0-51.0); LEFT SHIFT FLG 0 (0-99); LIPEMIA HEMOLYSIS FLAG 90 (0-99); MEAN CELL HEMOGLOBIN 29.9 pg (27.9-34.1); MEAN CELL HEMOGLOBIN CONCENTR. 33.9 g/dL (32.4-36.7); MEAN CELL VOLUME 88.2 fL (81.5-99.8); MEAN PLATELET VOLUME 10.1 fL (8.7-11.7); PLATELET CLUMPS FLAG 20 (0-99); PLATELET COUNT 220 10^3/uL (150-400); RED BLOOD CELL COUNT 5.02 10^6/uL (4.40-6.38)
[2017-02-14 10:49] LABS: INR 1.11 (0.83-1.16); PROTIME(PATIENT) 14.2 SEC (12.0-15.0)
[2017-02-14 10:50] LABS: APTT 29.6 SEC (23.0-38.0)
[2017-02-14 10:57] LABS: ANION GAP 11 mEq/L (8-16); CALCIUM 9.2 mg/dL (8.5-10.4); CARBON DIOXIDE 24 mEq/l (22-31); CHLORIDE 105 mEq/L (97-110); CREATININE 0.9 mg/dL (0.7-1.3); GLOMERULAR FILTRATION RATE > 60; GLUCOSE 86 mg/dL (70-100); POTASSIUM 4.5 mEq/L (3.5-5.2); SODIUM 140 mEq/L (134-144)
[2017-02-14 11:24] VITALS: BP 120/77; PULSE 67; TEMP 97.7; O2SAT 96
== END 2017-02-14 11:24 | disposition home or self-care (01) ==
DX: K92.1 Melena (principal)